=== PATIENT | male | born 1975 | race Hispanic/Latino ===

== ENCOUNTER 2023-06-22 03:11 | Emergency (ER) | payer OTHER ==
[2023-06-22 04:28] LABS: Hematocrit 38.1 % (38.8-50.0); Hemoglobin 13.1 g/dL (13.5-17.5); Mean Corpuscular HGB CONC 34.4 g/dL (32.0-36.0); Mean Corpuscular Hemoglobin 30.9 pg (27.0-33.0); Mean Corpuscular Volume 89.9 fl (81.2-95.1); Mean Platelet Volume 9.5 fl (7.4-10.4); Platelet Count 384 10x3/uL (150-450); RBC Distribution Width 14.5 % (11.5-14.5); Red Blood Cell (RBC) Count 4.24 10x6/uL (4.32-5.72); White Blood Cell (WBC) Count 19.8 10x3/uL (3.5-10.5)
[2023-06-22 04:30] LABS: MDiff Complete? YES
[2023-06-22 04:34] LABS: Bilirubin Neg (Negative); Blood, Urine Negative (Negative); Clarity Clear (Clear); Glucose, Urine (Dipstick) Normal (Negative); Ketone, Urine Negative (Negative); Leukocyte Negative (Negative); Nitrite Negative (Negative); Protein, Urine (Dipstick) Negative (Neg-Trace); Urobilinogen Normal mg/dL (Less than 2)
[2023-06-22 04:41] LABS: Bacteria/HPF None Seen HPF (None Seen); CAUTI Indications for Culture Pelvic or flank pain; RBC/HPF None Seen HPF (0-3); Squamous Epithelial 0-3 HPF (0-3); WBC/HPF None Seen HPF (0-3)
[2023-06-22 04:42] LABS: Urine Culture Reflex No No
[2023-06-22 04:44] LABS: Platelet Adequacy Comment Appears Adequate; RBC Morph Comment Within Normal Limits
[2023-06-22 04:45] LABS: Band 8 % (5-11); Eosinophils 1 % (0-10); Lymphocytes 14 % (21-51); Metamyelocyte 1 % (0-0); Monocytes 11 % (0-10); Neutrophil 65 % (42-75)
[2023-06-22 04:46] LABS: ALT (SGPT) 12 U/L (8-55); AST (SGOT) 20 U/L (5-34); Albumin 3.6 g/dL (3.5-5.0); Alkaline Phosphatase 94 U/L (40-110); Anion Gap 14 mmol/L (10-20); BUN (Urea Nitrogen) 7 mg/dL (8.9-20.6); Bilirubin, Total 0.3 mg/dL (0.2-1.2); Calc. Creatinine Clearance 0 mL/min (70-130); Calcium 8.7 mg/dL (7.8-10.44); Carbon Dioxide 21 mmol/L (22-29); Chloride 104 mmol/L (98-107); Estimated GFR 115; Globulin 3.7 g/dL (2.4-3.5); Glucose 96 mg/dL (70-105); Lipase 11 U/L (8-78); Potassium 3.9 mmol/L (3.5-5.1); Protein, Total 7.3 g/dL (6.0-8.3); Sodium 135 mmol/L (136-145)
[2023-06-22] MEDS ORDERED: Ketorolac Tromethamine 30 MG (1 mL) VIAL ONE (05:11)
[2023-06-22] MEDS ORDERED: Piperacillin/Tazobactam 4.5 GM VIAL ONE (05:11)
[2023-06-22] MEDS ORDERED: Ondansetron PF 4 MG/2 ML Vial ONE (07:01)
[2023-06-22] MEDS ORDERED: Morphine 4 MG/ML VIAL ONE (07:01)
[2023-06-22 08:09] LABS: Lactic Acid 1.6 mmol/L (0.5-2.2)
[2023-06-22] MEDS ORDERED: Iopamidol 300 61% 100 ML VIAL FS ONE (08:58)
== END 2023-06-22 09:02 | disposition short-term general hospital (02) ==
LOC: EEVIPCON 03:11 → CSHERS 03:11
DX: K35.80 Unspecified acute appendicitis (principal)
CPT/HCPCS: 36415; 74177; 80053; 81001; 83605; 83690; 85025; 93005; J1885; J2270; J2405; J2543